=== PATIENT | female | born 1975 | race Caucasian/White ===

== ENCOUNTER 2020-05-14 10:14 | Emergency (ER) | payer BC, OTHER ==
[2020-05-14 10:20] VITALS: TEMP 97; BMI 23.4
--- OUTSIDE RECORDS SUMMARY | 2020-05-14 10:28 | XMS ---
:1975 Author Organization [facility] Name Relationship Address Phone [employer]IT[employer] Unavailable [address] [phone] [address] [place] [address] MARIUSZ SALVADOR [address] [place] [address] Re-disclosure Warning The records that you are about to access may contain information from federally- assisted alcohol or drug abuse programs. If such information is present, then the following federally mandated warning applies: This information has been disclosed to you from records protected by federal confidentiality rules (42 CFR part 2). The federal rules prohibit you from making any further disclosure of this information unless further disclosure is expressly permitted by the written consent of the person to whom it pertains or as otherwise permitted by 42 CFR part 2. A general authorization for the release of medical or other information is NOT sufficient for this purpose. The Federal rules restrict any use of the information to criminally investigate or prosecute any alcohol or drug abuse patient.The records that you are about to access may contain highly sensitive health information, the redisclosure of which is protected by Article 27-F of the [facility] Public Health law. If you continue you may haveaccess to information: Regarding HIV / AIDS; Provided by facilities licensed or operated by the [facility] Office of Mental Health; or Provided by the [facility] Office for People With Developmental Disabilities. If such information is present, then the following [facility] mandated warning applies: This information has been disclosed to you from confidential records which are protected by state law. State law prohibits you from making any further disclosure of this information without the specific written consent of the person to whom it pertains, or as otherwise permitted by law. Any unauthorized further disclosure in violation of state law may result in a fine or senior living sentence or both. A general authorization for the release of medical or other information is NOT sufficient authorization for further disclosure. Insurance Providers Payer name Policy type / Policy ID Covered Covered alliance party's Policy Plan Coverage type alliance party ID relationship to [employer] Information [employer] PPO [id number] SP [id number] Problems, Conditions, and Diagnoses Code Display Name Description Problem Type Effective Dates Data Source(s) 616.10 VAGINITIS AND VAGINITIS Diagnosis 10/20/2018 ANABELLE (Jamie reed VULVOVAGINITIS 10:08:59 AM RADHA echavarria UNSPECIFIED [facility])
[2020-05-14] MEDS ORDERED: ONDANSETRON 4 MG/2 ML VIAL IVPUSH ONE (10:51)
[2020-05-14] MEDS ORDERED: SODIUM CHLORIDE 1,000 ML IV STA (10:51)
[2020-05-14] MEDS ORDERED: ACETAMINOPHEN 1000 MG/100 ML VIAL (NON FORMULARY) IVPB ONE (10:51)
--- NOTE | 2020-05-14 11:07 | PDOC ---
History of Present Illness - General Chief Complaint: Headache Stated Complaint: HEADACHE Time Seen by Provider: 05/14/20 10:44 History Source: Patient Exam Limitations: No Limitations - History of Present Illness Initial Comments: 05/14/20 11:12 45-year-old female presents to ED with complaints of frontal headache which she describes as a pressure stabbing sensation since Friday. Patient also states had felt dizzy upon onset Friday afternoon followed by one episode of vomiting. Patient denies any visual changes but felt as if the room was spinning stating if she moves her head to the left her symptoms are amplified. Patient states no recent head injury, dental work, ear pain, neck pain, fever, chills, or recent jarring movement. 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 Patient denies any other medical history. Timing/Duration: reports: other (2 days) Severity: Yes: moderate Associated Symptoms: reports: nausea/vomiting, other. denies: vision changes, weakness Past History - Travel History Traveled outside of the country in the last 30 days: No Close contact w/someone who was outside of country & ill: No - Medical History Allergies/Adverse Reactions: Allergies Allergy/AdvReac Type Severity Reaction Status Date / Time No Known Allergies Allergy Verified 05/14/20 10:19 COPD: No - Reproductive History Is Patient Now?: No - Psycho-Social/Smoking History Patient Lives Alone: No Lives with/in: spouse/SO Smoking History: Never smoked Review of Systems - Review of Systems Able to Perform ROS?: Yes Constitutional: No: Symptoms Reported HEENTM: No: Symptoms Reported Respiratory: No: Symptoms reported Cardiac (ROS): Yes: Lightheadedness ABD/GI: Yes: Nausea, Vomiting : No: Symptoms Reported Musculoskeletal: No: Symptoms Reported Integumentary: No: Symptoms Reported Neurological: Yes: Headache, Dizziness. No: Weakness Hematologic/Lymphatic: No: Symptoms Reported *Physical Exam - Vital Signs Last Vital Signs Temp Pulse Resp BP Pulse Ox 97 F L 89 18 138/76 97 05/14/20 10:15 05/14/20 10:15 05/14/20 10:15 05/14/20 10:15 05/14/20 10:15 - Physical Exam General Appearance: Yes: Nourished, Appropriately Dressed. No: Apparent Distress HEENT: positive: EOMI, NATE. negative: Pale Conjunctivae Neck: positive: Supple. negative: Tender, Decreased range of motion Respiratory/Chest: positive: Lungs Clear, Normal Breath Sounds. negative: Respiratory Distress, Accessory Muscle Use Cardiovascular: positive: Regular Rhythm, Regular Rate. negative: Murmur Gastrointestinal/Abdominal: positive: Soft. negative: Tenderness Musculoskeletal: negative: CVA Tenderness Extremity: positive: Normal Inspection Integumentary: positive: Normal Color, Warm, Moist Neurologic: positive: solid propellant processor II-XII NML intact, Motor Strength 5/5 (ambulatory). negative: Other (Negative Hallpike's) ED Treatment Course - LABORATORY CBC & Chemistry Diagram: 05/14/20 11:15 05/14/20 11:15 - RADIOLOGY Radiology Studies Ordered: Category Date Time Status HEAD CT WITHOUT CONTRAST [CT] Stat CT Scan 05/14/20 10:50 Ordered Medical Decision Making - Medical Decision Making 05/14/20 11:24 Chief complaint: Patient with headache, dizziness with nausea worsened with movement. Denies tinnitus. Patient denies recent injury recent dental work or illness. Patient has taken Tylenol Motrin with no improvement. Patient still complaining of nausea. Exam: Negative Hallpike's vital signs stable. Normal neuro exam. Plan: Labs, urine, fluids, IV Tylenol, Zofran and head CT ordered 05/14/20 14:06 CT shows an apparent mild Chiari type malformation with the tonsil extending 0.4 cm above the level of the crawford magnum. No calvarial defect is seen. Mastoid air cells and partially imaged paraspinous sinuses demonstrate no opacification. Patient will be given referral to the neurologist 05/14/20 14:07 Laboratory Tests 05/14/20 05/14/20 05/14/20 11:15 11:15 11:15 WBC 8.5 Hgb 12.9 Hct 39.0 Neutrophils % 74.3 Sodium 139 Potassium 3.7 Chloride 105 Carbon Dioxide 27 Anion Gap 7 L BUN 8.4 Random Glucose 108 H Calcium 9.8 Magnesium 2.2 Total Bilirubin 0.5 AST 13 L ALT 18 Lipase 110 Ur Specific [place] 1.007 L Urine Protein Negative Urine Glucose (UA) Negative Urine Ketones Negative Urine Blood Negative Urine Nitrite Negative Urine Bilirubin Negative Ur Leukocyte Esterase Negative Urine HCG, Qual Negative Patient feeling better. Patient will be given referral to Dr. Malkani imaging of CAT scan also given to patient 05/14/20 14:09 Discharge - Discharge Information Problems reviewed: Yes Clinical Impression/Diagnosis: Headache, Chiari I malformation Condition: Good Disposition: HOME - Follow up/Referral Referrals: Gino Cota MD, FA[facility] [Staff Physician] - - Patient Discharge Instructions Patient Printed Discharge Instructions: DI for Chiari Malformation Additional Instructions: I do want you to follow-up with neurologist as discussed. May take Tylenol for discomfort Print Language: SPA - Post Discharge Activity Work/Back to School Note: Back to Work
[2020-05-14] MEDS ORDERED: ACETAMINOPHEN INJECTION 100 ML IVPB ONE (11:17)
[2020-05-14 11:47] LABS: BASO % 0.4 % (0-2.0); EOS % 0.2 % (0-4.5); HEMOGLOBIN 12.9 GM/dL (10.7-15.3); LYMPH % 18.9 % (8-40); MCHC 33.1 g/dl (32.0-36.0); MEAN CELL VOLUME 87.5 fl (80-96); MEAN PLT VOLUME 8.3 fl (7.5-11.1); MONO % 6.2 % (3.8-10.2); NEUT % 74.3 % (42.8-82.8); PLATELET COUNT 271 K/MM3 (134-434); RBC 4.46 M/mm3 (3.60-5.2); RDW 16.1 % (11.6-15.6); WHITE BLOOD COUNT 8.5 K/mm3 (4.0-10.0)
[2020-05-14 11:49] LABS: URINE APPEARANCE CLEAR; URINE BILIRUBIN NEGATIVE (NEGATIVE); URINE COLOR YELLOW; URINE GLUCOSE (UA) NEGATIVE (NEGATIVE); URINE KETONE NEGATIVE (NEGATIVE); URINE LEUK ESTERASE NEGATIVE (NEGATIVE); URINE NITRITE NEGATIVE (NEGATIVE); URINE PROTEIN NEGATIVE (NEGATIVE); URINE UROBILINOGEN 0.2 mg/dL (0.2-1.0)
[2020-05-14 11:51] LABS: HCG,QUALITATIVE URINE Negative
[2020-05-14 12:20] LABS: ALBUMIN 4.2 g/dl (3.4-5.0); BILIRUBIN,TOTAL 0.5 mg/dL (0.2-1); BLOOD UREA NITROGEN 8.4 mg/dL (7-18); CALCIUM 9.8 mg/dL (8.5-10.1); CREATININE 0.6 mg/dL (0.55-1.3); MAGNESIUM 2.2 mg/dL (1.8-2.4); POTASSIUM 3.7 mmol/L (3.5-5.1)
[2020-05-14 14:36] VITALS: BP 121/67; PULSE 81
== END 2020-05-14 14:37 | disposition home or self-care (01) ==
LOC: JER 10:14
PROC: 3E0333Z Introduction of Anti-inflammatory into Peripheral Vein, Percutaneous Approach (ICD-10-PCS; principal; 2020-05-14)
PROC: 3E033GC Introduction of Other Therapeutic Substance into Peripheral Vein, Percutaneous Approach (ICD-10-PCS; 2020-05-14)
PROC: 3E0337Z Introduction of Electrolytic and Water Balance Substance into Peripheral Vein, Percutaneous Approach (ICD-10-PCS; 2020-05-14)
DX: R51 Headache (principal); Q07.00 Arnold-Chiari syndrome without spina bifida or hydrocephalus
CPT/HCPCS: 36415; 70450-TC; 80053; 81003; 83690; 83735; 84703; 85025; 99284-25; J0131